=== PATIENT | female | born 1980 | race Caucasian/White ===

== ENCOUNTER 2016-09-02 12:23 | Emergency (ER) | payer BC ==
[~2016-09-02 12:23] MED LIST: LORTA5 PO; PREN0.01 PO; ZOFR4TAB3 SL
[2016-09-02 13:57] VITALS: BP 119/78; PULSE 89
[2016-09-02 13:58] VITALS: RESP 18
[2016-09-02 14:06] LABS: BLOOD, URINE NEG (NEG); COMMENT (UR) CULT NOT INDICATED; CULTURE IF INDICATED CULT NOT INDICATED; GLUCOSE,URINE NEG (NEG); KETONE, URINE NEG (NEG); MUCUS URINE FEW /lpf (OCC); NITRITE,URINE NEG (NEG); PH, URINE 5.5 (5.0-8.5); URINE COLOR YELLOW (YELLW/STRAW)
[2016-09-02 14:07] LABS: HEMATOCRIT 35.1 % (35.0-46.0); MEAN CELL VOLUME 80.8 FL (80.0-100.0); MEAN CORPUSCULAR HGB CONC 33.4 % (32.0-36.0); PLATELET COUNT 251 TH/MM3 (150-450); RED BLOOD COUNT 4.35 MIL/MM3 (4.00-5.30); RED CELL DISTRIBUTION WIDTH 14.5 % (11.6-17.2); REVIEW FLAG FINAL; WHITE BLOOD COUNT 8.3 TH/MM3 (4.0-11.0)
[2016-09-02 14:21] LABS: ALT (GPT) 24 U/L (10-53); ANION GAP 8 MEQ/L (5-15); AST (GOT) 23 U/L (15-37); BICARBONATE 24.8 MEQ/L (21.0-32.0); BLOOD UREA NITROGEN 8 MG/DL (7-18); CHLORIDE 107 MEQ/L (98-107); GLOMERULAR FILTRATION RATE 76 ML/MIN (>89); POTASSIUM 3.6 MEQ/L (3.5-5.1); SODIUM (NA) 140 MEQ/L (136-145)
[2016-09-02 14:23] LABS: ALKALINE PHOSPHATASE 196 U/L (45-117); TOTAL BILIRUBIN ADULT 0.4 MG/DL (0.2-1.0)
--- NOTE | 2016-09-02 14:41 | PD ---
HPI Chief Complaint Swelling and elevated blood pressure Date Seen: Sep 02, 2016 Time Seen: 13:40 Travel History International Travel<30 Days: No Contact w/Intl Traveler<30Days: No Known Affected Area: No History of Present Illness HPI 36-year-old multiparous female scheduled for next Monday who was seen by Dr. Machado in the office today and noted to have 1+ edema and she was sent for evaluation to rule out preeclampsia. She denies any headache, visual changes, abdominal pain. Para: 6 : 3 Miscarriage: 1 : 0 History Past Medical History Narrative Medical Levaquin allergy Obstetric History Obstetric History Alaniz cerclage following 22 week in 2003 Past Surgical History Narrative Surgical 3, Alaniz cerclage, D&C for miscarriage, tonsils Family History Family History: Negative Social History Alcohol Use: No Tobacco Use: No Substance Abuse: No Allergies-Medications (Allergen,Severity, Reaction): Coded Allergies: Levaquin (Verified Allergy, Mild, Rash, 09/02/16) Home Meds Active Scripts Ondansetron (Zofran ODT)4 Mg Tab4 Mg SL Q6H PRN (NAUSEA) #4 TAB FOR NAUSEA/VOMITING Prov:Fox Machado MD 10/07/15 Hydrocodone-Acetaminophen 5-325 mg ([place] 5-325 mg)5 mg/325 mg Tab1 Tab PO Q4H PRN (PAIN) #20 TAB Prov:Fox Machado MD 10/07/15 Reported Medications Vitamins 1 Tab PO DAILY #30 06/19/10 Review of Systems Except as stated in HPI: all other systems reviewed are Neg Physical Exam Narrative GENERAL: Well-nourished, well-developed patient. SKIN: Warm and dry. HEAD: Normocephalic and atraumatic. EYES: No scleral icterus. No injection or drainage. ENT: No nasal drainage noted. Mucous membranes pink. Airway patent. NECK: Supple, trachea midline. No JVD. CARDIOVASCULAR: Regular rate and rhythm without murmurs, gallops, or rubs. RESPIRATORY: Breath sounds equal bilaterally. No accessory muscle use. ABDOMEN/GI: Abdomen soft, non-tender, bowel sounds present, no rebound, no guarding Gravid to [-] weeks size Fundal Height: [38-] GENITOURINARY: Presentation: [-] Membranes: [intact or ruptured] Uterine Contractions: [None-] FHT's: Category: [-] Baseline: [-] Reactive: [-Reactive] Variability: [-] Decels: [-] EXTREMITIES: 1 plus edema. BACK: Nontender without obvious deformity. No CVA tenderness. NEUROLOGICAL: Awake and alert. Motor and sensory grossly within normal limits. Five out of 5 muscle strength in all muscle groups. Normal speech. Data Data Vital Signs Reviewed: Yes Orders Vital Signs (Adult) .ON ADMISSION (09/02/16 13:01) ^ Labor Status (09/02/16 13:01) Urinalysis - C+S If Indicated (09/02/16 13:01) Cbc No Diff, Includes Plts (09/02/16 13:06) Comprehensive Metabolic Panel (09/02/16 13:06) Protein Creat Ratio, Random Ur (09/02/16 13:06) Labs Laboratory Tests Test 09/02/16 09/02/16 12:30 13:00 Urine Color YELLOW Urine Turbidity CLEAR Urine pH 5.5 Urine Specific [place] 1.008 Urine Protein NEG Urine Glucose (UA) NEG Urine Ketones NEG Urine Occult Blood NEG Urine Nitrite NEG Urine Bilirubin NEG Urine Urobilinogen LESS THAN 2.0 Urine Leukocyte Esterase NEG Urine RBC LESS THAN 1 Urine WBC 1 Urine Mucus FEW Microscopic Urinalysis Comment CULT NOT INDICATED White Blood Count 8.3 Red Blood Count 4.35 Hemoglobin 11.7 Hematocrit 35.1 Mean Corpuscular Volume 80.8 Mean Corpuscular Hemoglobin 27.0 Mean Corpuscular Hemoglobin 33.4 Concent Red Cell Distribution Width 14.5 Platelet Count 251 Mean Platelet Volume 9.1 Urine Random Creatinine 55 Urine Random Total Protein LESS THAN 5 Urine Protein/Creatinine Ratio 0.09 Sodium Level 140 Potassium Level 3.6 Chloride Level 107 Carbon Dioxide Level 24.8 Anion Gap 8 Blood Urea Nitrogen 8 Creatinine 0.86 Estimat Glomerular Filtration 76 Rate Random Glucose 69 Calcium Level 8.4 Total Bilirubin 0.4 Aspartate Amino Transf 23 (AST/SGOT) Alanine Aminotransferase 24 (ALT/SGPT) Alkaline Phosphatase 196 Total Protein 5.8 Albumin 2.5 MDM Medical Record Reviewed: Yes Narrative Course / MDM Assessment: 36-year-old multiparous female at 38+ weeks gestation with edema but no evidence for preeclampsia. Plan: The patient was discharged home with instructions regarding preeclamptic precautions and will follow up as scheduled for on Monday Diagnosis Diagnosis: Primary Impression: with 38 completed weeks gestation Additional Impression: Edema Disposition: 01 DISCHARGE HOME Condition: Good Patient Instructions: General Instructions Departure Forms: Tests/Procedures Fox Orta MD Sep 02, 2016 14:41
== END 2016-09-02 14:55 | disposition home or self-care (01) ==
LOC: HOBED 12:23
DX: O26.93 Pregnancy related conditions, unspecified, third trimester (principal); R60.0 Localized edema; R03.0 Elevated blood-pressure reading, without diagnosis of hypertension; Z3A.38 38 weeks gestation of pregnancy
CPT/HCPCS: 36415; 80053; 81001; 82570; 84156; 85027

== ENCOUNTER 2016-09-05 12:16 | Inpatient (IN) | payer BC ==
[~2016-09-05] VITALS: Ht 167.6 cm; Wt 109.3 kg
--- NOTE | 2016-09-05 16:32 | MH ---
cc: FOX MACHADO M.D. DATE OF ADMISSION 09/06/2016 DATE OF 1980 HISTORY OF THE PRESENT ILLNESS The patient is a 35-year-old female 6, para 4, history of previous section times four who is 39 weeks gestation scheduled for elective repeat section and tubal ligation. The patient has had a 5 pound weight gain over the last week and a recent evaluation for preeclampsia was normal. The patient's course was notable for subchorionic bleed early in the , resolved spontaneously by the first trimester. Patient has also had a cerclage placed several years prior which is in place and functional. The patient's past medical history, ALLERGIES THE PATIENT HAS AN ALLERGY TO LEVAQUIN. PAST MEDICAL HISTORY She denies any systemic or chronic disease states. PAST SURGICAL HISTORY The patient's surgical history includes: 1. section in 2003, 2005, 2009 and 2012. 2. Cerclage placement in 2003. 3. The patient had a history of spontaneous miscarriage resulting in dilatation and curettage in September 2015. MEDICATIONS The patient's current medications include: vitamins only. FAMILY HISTORY Noncontributory. SOCIAL HISTORY She denies any use of alcohol, tobacco or illicit substances. OBSTETRICAL HISTORY She is blood type is O+. Group B strep status is negative. The patient is rubella immune. PHYSICAL EXAMINATION GENERAL: The patient is well-appearing, well-nourished female in no acute distress. VITAL SIGNS: Stable. The patient's blood pressure is 132/80. She weighs 241 pounds. She is afebrile. heart tones were documented in the 140s. HEENT: Shows no adenopathy or thyromegaly. NECK: The neck is supple. Full range of motion. LUNGS: Clear in all nieves. CARDIOVASCULAR: regular rate and rhythm without murmur, rub or gallop. ABDOMEN: Is gravid. Estimated weight is 8 pounds. The baby's position is vertex. EXTREMITIES: The patient's extremities were symmetrical, full range of motion. She has 2-3+ pitting edema below the knee. She has normal reflexes. There is no cyanosis or clubbing. NEUROLOGICAL: Exam is grossly intact, nonfocal. ASSESSMENT The patient with 39-week intrauterine gestation, previous section times four, history of Alaniz cervical cerclage, is scheduled for a repeat elective with tubal ligation. Fox Machado MD SJBijal/KK /3:53 PM /4:12 PM
[2016-09-06 05:50] VITALS: BP 126/77; PULSE 96
[2016-09-06 05:52] VITALS: RESP 18; TEMP 98
[2016-09-06] MEDS ORDERED: LACTATED RINGER'S 1000 ML IV ONE (06:00)
[2016-09-06] MEDS ORDERED: ceFAZolin 2 GM PREMIX 50 ML IV SCH (06:00)
[2016-09-06] MEDS ORDERED: CITRIC ACID-SODIUM CITRATE LIQ 30 ML UDC PO SCH (06:00)
[2016-09-06] MEDS ORDERED: LACTATED RINGER'S 1000 ML IV SCH (06:00)
[2016-09-06 06:13] LABS: AUTOMATED NEUTROPHIL # 6.6 TH/MM3 (1.8-7.7); BASOPHIL % 0.4 % (0.0-2.0); EOSINOPHIL # 0.1 TH/MM3 (0-0.4); EOSINOPHIL % 0.9 % (0.0-4.0); HEMATOCRIT 35.1 % (35.0-46.0); HEMO FLAGS DIFF FINAL; LYMPH % 18.8 % (9.0-44.0); LYMPHOCYTE # 1.7 TH/MM3 (1.0-4.8); MEAN CELL VOLUME 81.1 FL (80.0-100.0); MEAN CORPUSCULAR HEMOGLOBIN 27.5 PG (27.0-34.0); MEAN CORPUSCULAR HGB CONC 33.9 % (32.0-36.0); MONO % 5.7 % (0.0-8.0); NEUT % 74.2 % (16.0-70.0); PLATELET COUNT 237 TH/MM3 (150-450); RED BLOOD COUNT 4.33 MIL/MM3 (4.00-5.30); RED CELL DISTRIBUTION WIDTH 14.3 % (11.6-17.2); WHITE BLOOD COUNT 8.9 TH/MM3 (4.0-11.0)
[2016-09-06 06:15] LABS: BACTERIA, URINE RARE /hpf; BLOOD, URINE NEG (NEG); COMMENT (UR) CULT NOT INDICATED; CULTURE IF INDICATED CULT NOT INDICATED; GLUCOSE,URINE NEG (NEG); KETONE, URINE NEG (NEG); MUCUS URINE FEW /lpf (OCC); NITRITE,URINE NEG (NEG); PH, URINE 5.5 (5.0-8.5); SQUAMOUS EPITHELIAL CELL URINE 1 /hpf (0-5); URINE COLOR YELLOW (YELLW/STRAW)
[2016-09-06] MEDS ORDERED: OXYTOCIN 10 UNIT/ML AMP ONE (07:08)
[2016-09-06] MEDS ORDERED: SODIUM CHLORIDE 0.9% FLUSH 5 ML FLUSH IV PRN (07:30)
[2016-09-06] MEDS ORDERED: OXYTOCIN 30 UNITS-500ML PREMIX 500 ML IV ONE (07:30)
[2016-09-06] MEDS ORDERED: ACETAMINOPHEN 1000 MG/100 ML VIAL IV ONE ×2 (07:30→08:59)
[2016-09-06] MEDS ORDERED: SIMETHICONE 80 MG CHEWABLE TAB PO PRN (07:30)
[2016-09-06] MEDS ORDERED: ONDANSETRON HCL 4 MG/2 ML VIAL IV PUSH PRN (07:30)
[2016-09-06] MEDS ORDERED: IBUPROFEN 600 MG TAB PO PRN (07:30)
--- NOTE | 2016-09-06 08:40 | PD.OB.DELI ---
Procedure Note Section Procedure Performed by oFx Machado Procedure: Repeat Low Transverse Sec (bilateral tubal ligation) Indication for delivery: Desired elective repeat Informed consent obtained: For anesthesia, For procedure Confirmed correct: Patient, Procedure, Site, Time-out taken Anesthesia: Spinal Medication prior to procedure: As documented in eMAR Monitoring during procedure: Blood pressure monitoring, direct care specialist, doppler, Pulse oximetry Urinary catheter: Inserted using sterile technique, To dependent drainage Sterile preparation: Duraprep Position: Supine with wedge to right side, Supine with safety belt applied Operative Features Skin Incision: Pfannenstiel Uterine Incision: Low transverse w/knife / scissors Membranes Ruptured: Artificially Presentation: Occiput anterior Delivery of infant: Uneventful Infant: Female One Minute : 8 Five Minute : 9 Weight: 8# 13oz Status of : Viable, Cord blood, Nursery present Placenta delivered: Intact Medications: Antibiotics, Oxytocin Estimated blood loss: 650 cc Procedure tolerated: Well Maternal Condition: Stable Condition: Stable Fox Machado MD Sep 06, 2016 08:40
[2016-09-06] MEDS ORDERED: ONDANSETRON HCL 4 MG/2 ML VIAL ONE (08:42)
[2016-09-06] MEDS ORDERED: MORPHINE SULFATE PF 5 MG/10 ML VIAL ONE (08:42)
[2016-09-06] MEDS ORDERED: OXYTOCIN 30 UNITS-500ML PREMIX 500 ML ONE ×2 (08:59→09:45)
[2016-09-06] MEDS ORDERED: KETOROLAC TROMETHAMINE 30 MG/ML (IVP) VIAL ONE (08:59)
[2016-09-06] MEDS ORDERED: SODIUM CHLORIDE 0.9% FLUSH 5 ML FLUSH IV SCH (09:00)
[2016-09-06] MEDS ORDERED: MISOPROSTOL 100 MCG TAB ONE (09:09)
[2016-09-06] MEDS ORDERED: CARBOPROST TROMETHAMINE 250 MCG/ML VIAL ONE ×4 (09:09→18:54)
[2016-09-06] MEDS ORDERED: METHYLERGONOVINE MALEATE 0.2 MG/ML VIAL ONE (09:12)
[2016-09-06 11:00] VITALS: BP 140/81; PULSE 60; RESP 18; TEMP 97.8
[2016-09-06] MEDS ORDERED: KETOROLAC TROMETHAMINE 30 MG/ML (IVP) VIAL IM PRN (13:30)
[2016-09-06] MEDS: LACTATED RINGER'S 1000 ML INJ 1,000 ML IV SCH (14:24)
[2016-09-06] MEDS ORDERED: EPIDURAL-DO NOT ADMINISTER ANTICOAGULANTS XX PRN (15:00)
[2016-09-06] MEDS ORDERED: EPIDURAL-DIPHENHYDRAMINE HCL 50 MG CAP PO PRN (15:00)
[2016-09-06] MEDS ORDERED: EPIDURAL-NO SYSTEMIC NARCOTICS XX PRN (15:00)
[2016-09-06] MEDS ORDERED: EPIDURAL-NALOXONE HCL 0.4 MG/ML AMP IV PRN (15:00)
[2016-09-06] MEDS: EPIDURAL-DIPHENHYDRAMINE HCL 50 MG/ML VIAL IV PUSH PRN ×2 (15:09→23:26)
[2016-09-06 16:09] LABS: HEMATOCRIT 31.9 % (35.0-46.0); MEAN CELL VOLUME 81.6 FL (80.0-100.0); MEAN CORPUSCULAR HEMOGLOBIN 27.3 PG (27.0-34.0); MEAN CORPUSCULAR HGB CONC 33.4 % (32.0-36.0); PLATELET COUNT 208 TH/MM3 (150-450); RED BLOOD COUNT 3.91 MIL/MM3 (4.00-5.30); RED CELL DISTRIBUTION WIDTH 14.2 % (11.6-17.2); REVIEW FLAG FINAL; WHITE BLOOD COUNT 15.3 TH/MM3 (4.0-11.0)
[2016-09-06 17:00] VITALS: BP 130/78; PULSE 68; RESP 18; TEMP 98.8
[2016-09-06] MEDS ORDERED: OXYTOCIN 30 UNITS-500ML PREMIX 500 ML IV PRN (17:30)
[2016-09-06] MEDS ORDERED: CARBOPROST TROMETHAMINE 250 MCG/ML VIAL IM ONE ×2 (19:00→19:20)
[2016-09-06 19:10] VITALS: BP 139/75; PULSE 89; RESP 18; TEMP 97.9
[2016-09-06] MEDS ORDERED: FUROSEMIDE 20 MG/2 ML VIAL IV PUSH ONE (20:00)
[2016-09-06] MEDS ORDERED: OXYTOCIN 30 UNITS/NS 500ML PREMIX IV SCH (20:00)
[2016-09-06] MEDS: oxyCODONE/ACETAMINOPHEN 5 MG/325 MG TAB PO PRN (21:23)
--- NOTE | 2016-09-06 21:52 | MP ---
cc: BON MATSON DATE OF SURGERY 09/06/16 DATE OF 1980 PREOPERATIVE DIAGNOSIS Term intrauterine , previous section times four for elective repeat and tubal ligation, history of incompetent cervix with cervical cerclage in place. PROCEDURE Repeat low transverse section, delivery of viable female , bilateral tubal ligation using modified Siletz technique. SURGEON Lety Matson MD ANESTHESIA Spinal ESTIMATED BLOOD LOSS 650 mL. DRAINS Stephens to gravity OPERATIVE FINDINGS Female weighing 8 pounds 13 ounces, Apgars are eight at 1 minute, nine at five. No nuchal cord, clear fluid, intact placenta. Cerclage remained in place. INDICATIONS FOR PROCEDURE Patient for elective delivery by repeat section at term and elective sterilization by tubal ligation. Consent was signed. The patient received Ancef 2 grams prophylactically. DESCRIPTION OF PROCEDURE The patient was taken to the operating room in stable condition underwent spinal anesthetic. She was prepped and draped on the operative table. Stephens catheter was inserted by sterile technique and sequentials were placed on the lower extremities. The patient had excellent pain control. Time-out was conducted and agreed by all present in the room. Previous Pfannenstiel incision was identified. A #10 blade was used to make the incision through the skin down through the subcutaneous layer to the fascia which was scored in the midline and opened laterally by sharp dissection. Dissecting the rectus fascia from the muscle required moderate amount of sharp dissection due to adhesions. The muscle bellies were midline. Peritoneum was easily identified and opened clearly without complication. The incision was extended. A bladder blade was placed over the pubic symphysis. A transverse incision was made in lower uterine segment with clear fluid. The infant was delivered from the incision without complication. oropharyngeal suction was performed. The infant was delivered in total with good tone and cry. Cord was doubly clamped and cut and the infant was taken to isolette by the nursing staff. The cord blood sample was obtained. Placenta was removed intact with trailing membranes. The uterus was explored. No retained tissue or active bleeding. The closure of the incision was made with a double layer, first with running locking suture of 0 Monocryl followed by a second imbricating suture of 0 Monocryl. The fallopian tubes were identified by simple retraction. The tubes were elevated using a Stanton clamp and the mesentery was opened using the Bovie in a hemostatic manner. 2-0 plain sutures were placed proximally and distally to remove about 4 cm of the fallopian tube bilaterally. The ampullary portion of the left side of the tube was removed with that specimen. Hemostasis was confirmed. There was no hematoma. Once the fallopian tubes were passed off the operative field labeled appropriately right and left, irrigation of the pelvis was conducted. Evacuation of all free fluid and blood demonstrated good hemostasis. No active bleeding. No hematoma. Full count was made and correct. The peritoneum was then closed with a running suture of 2-0 Monocryl followed by a mattress suture on the rectus muscle in the midline. The fascia was then closed with 0 Vicryl starting from each angle with a separate suture and bringing it towards the midline in a simple running fashion with good result. Good integrity of closure was documented. The subcutaneous layer was dried. No active bleeding was noted and the space was closed with a running suture of 2-0 Monocryl. [place] were used to close the skin. Dressing was applied. Final count was correct. The patient was stable. was doing well in the regular nursery. MD JAG Cortez/ /8:44 AM /9:39 PM
[2016-09-06 23:30] VITALS: BP 118/68; PULSE 95; RESP 17; TEMP 98.1; O2SAT 99
[2016-09-07] MEDS ORDERED: FUROSEMIDE 20 MG/2 ML VIAL IV PUSH ONE (01:45)
[2016-09-07] MEDS ORDERED: OXYTOCIN 30 UNITS-500ML PREMIX 500 ML IV ONE (01:45)
[2016-09-07 05:00] VITALS: BP 121/70; PULSE 97; RESP 18; O2SAT 100
[2016-09-07] MEDS: DOCUSATE SODIUM 50 MG/SENNA 8.6 MG TAB PO PRN ×2 (05:42→22:14)
[2016-09-07] MEDS: oxyCODONE/ACETAMINOPHEN 5 MG/325 MG TAB PO PRN ×5 (05:43→22:15)
[2016-09-07 05:59] LABS: HEMATOCRIT 27.7 % (35.0-46.0); MEAN CELL VOLUME 81.5 FL (80.0-100.0); MEAN CORPUSCULAR HEMOGLOBIN 27.3 PG (27.0-34.0); MEAN CORPUSCULAR HGB CONC 33.5 % (32.0-36.0); PLATELET COUNT 212 TH/MM3 (150-450); RED CELL DISTRIBUTION WIDTH 14.4 % (11.6-17.2); REVIEW FLAG FINAL; WHITE BLOOD COUNT 11.9 TH/MM3 (4.0-11.0)
[2016-09-07] MEDS: LACTATED RINGER'S 1000 ML INJ 1,000 ML IV SCH (06:24)
[2016-09-07 08:00] VITALS: BP 101/61; PULSE 87; RESP 18; TEMP 98.1
--- NOTE | 2016-09-07 11:04 | HHI.OB ---
Subjective Post Operative Day: 1 Remarks POD#1, resolving PPH/atony, no c/o this am.Feels good, no SOB,dizziness Objective Vitals/I&O Vital Signs Date Time Temp Pulse Resp B/P Pulse Ox O2 Delivery O2 Flow Rate FiO2 09/07/16 08:00 98.1 87 18 101/61 09/07/16 05:00 97 18 100 09/07/16 05:00 121/70 09/06/16 23:30 118/68 09/06/16 23:30 98.1 95 17 99 09/06/16 19:10 97.9 89 18 139/75 09/06/16 17:00 98.8 68 18 09/06/16 17:00 130/78 Result Diagram: 09/07/16 0552 Objective Remarks GENERAL: Well-nourished, well-developed patient. CARDIOVASCULAR: Regular rate and rhythm without murmurs, gallops, or rubs. RESPIRATORY: Breath sounds equal bilaterally. No accessory muscle use. ABDOMEN/GI: Abdomen soft, non-tender, bowel sounds present. Incision: Clean, dry and intact. Fundus: Firm, non-tender at umbilicus. GENITOURINARY: Light to moderate bleeding. EXTREMITIES: No cyanosis or edema, non-tender, without signs of DVT. Medications and IVs Current Medications Medications (Trade) Dose Ordered Sig/Keena Route Start Time Stop Time Status Last Admin (NS Flush) 2 ml BID IV 09/06/16 09:00 (NS Flush) 2 ml UNSCH PRN IV 09/06/16 07:30 (Mylicon Chew) 80 mg QID PRN PO 09/06/16 07:30 (Percocet 5-325 Mg) 1 tab Q4H PRN PO 09/06/16 07:30 09/07/16 05:43 (Percocet 5-325 Mg) 2 tab Q4H PRN PO 09/06/16 07:30 09/07/16 09:48 (Vee-Colace) 2 tab Q12H PRN PO 09/06/16 07:30 09/07/16 05:42 (M-M-R Ii Inj) 0.5 ml ONCE ONCE SQ 09/07/16 16:00 09/07/16 16:01 (Boostrix Inj) 0.5 ml ONCE ONCE IM 09/07/16 16:00 09/07/16 16:01 (Zofran Inj) 4 mg Q6H PRN IV PUSH 09/06/16 07:30 09/06/16 13:21 (Motrin) 600 mg Q6H PRN PO 09/07/16 13:30 Miscellaneous Information NO SYSTEMIC NARCOTICS TO BE GIVEN FO... UNSCH PRN XX 09/06/16 15:00 09/07/16 14:59 (Narcan Inj) 0.4 mg UNSCH PRN IV 09/06/16 15:00 09/07/16 14:59 (Benadryl Inj) 25 mg Q6H PRN IV PUSH 09/06/16 15:00 09/07/16 14:59 09/06/16 23:26 (Benadryl) 50 mg Q6H PRN PO 09/06/16 15:00 09/07/16 14:59 Miscellaneous Information ALL NURSING DEPARTMENTS UNSCH PRN XX 09/06/16 15:00 09/07/16 14:59 Assessment/Plan Assessment and Plan POD#1, stable PPH, Hgb 9.3 advance care,anticipate discharge on POD#3,monday Discharge Planning Does not meet criteria Attending Attestation Seen by Fox Fall MD Sep 07, 2016 11:04
[2016-09-07] MEDS ORDERED: OXYC1TAB63 PO (11:08)
[2016-09-07] MEDS ORDERED: FURO1TAB62 PO (11:08)
--- NOTE | 2016-09-07 11:09 | HHI.DS ---
Admission Date Sep 06, 2016 at 05:31 Admitting Diagnosis Diagnosis: : Repeat Infant: Female Pt Condition on Discharge: Good Discharge Disposition: Discharge Home Discharge Instructions Diet Instructions: As Tolerated, No Restrictions, Low Sodium Diet Activities You Can Perform: Shower Only-No Bath Activities to Avoid: Prolonged Standing, Strenuous Activity, Driving, Sexual Activity Fox Machado MD Sep 07, 2016 11:09
[2016-09-07 12:00] VITALS: BP 123/70; PULSE 109; RESP 18; TEMP 97.9
[2016-09-07 12:29] LABS: HEMATOCRIT 26.7 % (35.0-46.0)
[2016-09-07 15:47] VITALS: BP 131/73; PULSE 101; RESP 18; TEMP 98.2
[2016-09-07] MEDS ORDERED: DIPHTH/TETANUS/ACEL PERTUSSIS (BOOSTER) 0.5 ML VIAL/PFS IM ONE (16:00)
[2016-09-07] MEDS ORDERED: MEASLES, MUMPS, RUBELLA VACCINE 0.5 ML VIAL SQ ONE (16:00)
[2016-09-07] MEDS: IBUPROFEN 600 MG TAB PO PRN (17:46)
[2016-09-07 21:30] VITALS: BP 134/74; PULSE 100; RESP 20; TEMP 97.8
[2016-09-08] MEDS: IBUPROFEN 600 MG TAB PO PRN ×4 (01:57→22:35)
[2016-09-08] MEDS: oxyCODONE/ACETAMINOPHEN 5 MG/325 MG TAB PO PRN ×5 (01:58→22:36)
[2016-09-08 06:04] LABS: HEMATOCRIT 24.7 % (35.0-46.0); MEAN CELL VOLUME 81.6 FL (80.0-100.0); MEAN CORPUSCULAR HEMOGLOBIN 27.4 PG (27.0-34.0); MEAN CORPUSCULAR HGB CONC 33.5 % (32.0-36.0); PLATELET COUNT 222 TH/MM3 (150-450); RED BLOOD COUNT 3.02 MIL/MM3 (4.00-5.30); RED CELL DISTRIBUTION WIDTH 14.9 % (11.6-17.2); REVIEW FLAG FINAL; WHITE BLOOD COUNT 8.9 TH/MM3 (4.0-11.0)
--- NOTE | 2016-09-08 07:56 | HHI.OB ---
Subjective Post Operative Day: 2 Remarks pt c/o swelling inner thighs, wants another dose of lasix, +flatus Objective Vitals/I&O Vital Signs Date Time Temp Pulse Resp B/P Pulse Ox O2 Delivery O2 Flow Rate FiO2 09/07/16 21:30 97.8 100 20 134/74 09/07/16 15:47 98.2 18 09/07/16 15:47 101 131/73 09/07/16 12:00 109 18 123/70 09/07/16 12:00 97.9 09/07/16 08:00 98.1 87 18 101/61 Result Diagram: 09/08/16 0529 Objective Remarks GENERAL: Well-nourished, well-developed patient. CARDIOVASCULAR: Regular rate and rhythm without murmurs, gallops, or rubs. RESPIRATORY: Breath sounds equal bilaterally. No accessory muscle use. ABDOMEN/GI: Abdomen soft, non-tender, bowel sounds present. Incision: Clean, dry and intact. Fundus: Firm, non-tender at umbilicus. GENITOURINARY: Light to moderate bleeding. EXTREMITIES: No cyanosis or edema, non-tender, without signs of DVT. Medications and IVs Current Medications Medications (Trade) Dose Ordered Sig/Keena Route Start Time Stop Time Status Last Admin (NS Flush) 2 ml BID IV 09/06/16 09:00 (NS Flush) 2 ml UNSCH PRN IV 09/06/16 07:30 (Mylicon Chew) 80 mg QID PRN PO 09/06/16 07:30 (Percocet 5-325 Mg) 1 tab Q4H PRN PO 09/06/16 07:30 09/07/16 05:43 (Percocet 5-325 Mg) 2 tab Q4H PRN PO 09/06/16 07:30 09/08/16 01:58 (Vee-Colace) 2 tab Q12H PRN PO 09/06/16 07:30 09/07/16 22:14 (Zofran Inj) 4 mg Q6H PRN IV PUSH 09/06/16 07:30 09/06/16 13:21 (Motrin) 600 mg Q6H PRN PO 09/07/16 13:30 09/08/16 01:57 Assessment/Plan Assessment and Plan POD#2, stable PPH, Hgb 9.3 advance care,anticipate discharge on POD#3,david Discharge Planning Does not meet criteria Attending Attestation pt seen by me Harmony Kennedy MD Sep 08, 2016 07:56
[2016-09-08 08:00] VITALS: BP 141/87; PULSE 93; RESP 18; TEMP 98.2
[2016-09-08] MEDS ORDERED: FUROSEMIDE 20 MG TAB PO ONE (09:00)
[2016-09-08] MEDS: DOCUSATE SODIUM 50 MG/SENNA 8.6 MG TAB PO PRN (11:56)
[2016-09-08 15:58] VITALS: BP 131/79; PULSE 101; RESP 18; TEMP 100
[2016-09-08 21:00] VITALS: BP 138/77; PULSE 98; RESP 20; TEMP 98.4
[2016-09-09] MEDS: oxyCODONE/ACETAMINOPHEN 5 MG/325 MG TAB PO PRN ×3 (02:35→11:59)
[2016-09-09] MEDS: DOCUSATE SODIUM 50 MG/SENNA 8.6 MG TAB PO PRN (07:51)
[2016-09-09] MEDS: IBUPROFEN 600 MG TAB PO PRN (07:51)
[2016-09-09 08:00] VITALS: BP 143/89; PULSE 106; RESP 16; TEMP 98.7
[2016-09-09] MEDS ORDERED: IBUP-232 PO (08:13)
[2016-09-09] MEDS ORDERED: SENN1TAB PO (08:13)
--- NOTE | 2016-09-09 08:16 | HHI.OB ---
Subjective Post Operative Day: 3 Remarks s/p RCD and BTL Objective Vitals/I&O Vital Signs Date Time Temp Pulse Resp B/P Pulse Ox O2 Delivery O2 Flow Rate FiO2 09/08/16 21:00 98.4 98 20 138/77 09/08/16 15:58 131/79 09/08/16 15:58 100.0 101 18 09/08/16 09:30 18 09/08/16 09:30 18 Result Diagram: 09/08/16 0529 Objective Remarks GENERAL: Well-nourished, well-developed patient. CARDIOVASCULAR: Regular rate and rhythm without murmurs, gallops, or rubs. RESPIRATORY: Breath sounds equal bilaterally. No accessory muscle use. ABDOMEN/GI: Abdomen soft, non-tender, bowel sounds present. Incision: Clean, dry and intact. sandhya in place, for removal today Fundus: Firm, non-tender at umbilicus. GENITOURINARY: Light to moderate bleeding. EXTREMITIES: No cyanosis, non-tender, without signs of DVT. +2 edema pitting to b/l mid-shins; equal bilat Medications and IVs Current Medications Medications (Trade) Dose Ordered Sig/Keena Route Start Time Stop Time Status Last Admin (NS Flush) 2 ml BID IV 09/06/16 09:00 (NS Flush) 2 ml UNSCH PRN IV 09/06/16 07:30 (Mylicon Chew) 80 mg QID PRN PO 09/06/16 07:30 (Percocet 5-325 Mg) 1 tab Q4H PRN PO 09/06/16 07:30 09/07/16 05:43 (Percocet 5-325 Mg) 2 tab Q4H PRN PO 09/06/16 07:30 09/09/16 07:52 (Vee-Colace) 2 tab Q12H PRN PO 09/06/16 07:30 09/09/16 07:51 (Zofran Inj) 4 mg Q6H PRN IV PUSH 09/06/16 07:30 09/06/16 13:21 (Motrin) 600 mg Q6H PRN PO 09/07/16 13:30 09/09/16 07:51 Assessment/Plan Assessment and Plan POD#3 doing well meeting all criteria d/c to home on 10d of lasix due to edema pt to f/u in office in 7d with Dr. Machado wound care instructions given Discharge Planning routine, today Bushra Virgen MD Sep 09, 2016 08:16
== END 2016-09-09 13:13 | disposition home or self-care (01) | DRG 765 ==
LOC: H2EB 09-06 05:31 → H1EA 09-06 10:43
PROVIDERS: ADMIT Obstetrics & Gynecology; ATTEND Obstetrics & Gynecology
PROC: 10D00Z1 Extraction of Products of Conception, Low, Open Approach (ICD-10-PCS; principal; 2016-09-06)
PROC: 0UB70ZZ Excision of Bilateral Fallopian Tubes, Open Approach (ICD-10-PCS; 2016-09-06)
DX: O34.211 Maternal care for low transverse scar from previous cesarean delivery (principal); O34.33 Maternal care for cervical incompetence, third trimester; O72.1 Other immediate postpartum hemorrhage; Z30.2 Encounter for sterilization; Z37.0 Single live birth; Z3A.39 39 weeks gestation of pregnancy
CPT/HCPCS: 59025; 81001; 85014; 85018; 85025; 85027; 86850; 86900; 86901; 88302; J0131; J0690; J1200; J1885; J1940; J2210; J2274; J2405; J2590; J7120